=== PATIENT | female | born 1950 | race American Indian/Alaskan Native ===

== ENCOUNTER 2021-04-20 08:16 | Day surgery (SDC) | payer MEDICARE ==
[2021-04-20 09:22] LABS: Basophils % (Auto) 0.7 % (0.0-1.8); Eosinophils # (Auto) 0.1 K/mm3 (0.0-0.4); Lymphocytes # (Auto) 1.6 K/mm3 (1.2-5.4); Lymphocytes % (Auto) 26.5 % (13.4-35.0); Mean Corpuscular HGB Conc 30 % (30-34); Mean Corpuscular Volume 75 fl (79-97); Monocytes # (Auto) 0.6 K/mm3 (0.0-0.8); Monocytes % (Auto) 10.2 % (0.0-7.3); Platelet Count 293 K/mm3 (140-440); Red Blood Count 4.67 M/mm3 (3.65-5.03); Red Cell Distribution Width 18.8 % (13.2-15.2)
[2021-04-20 09:33] LABS: Blood Urea Nitrogen 14 mg/dL (7-17); Calcium 9.7 mg/dL (8.4-10.2); Hemolysis Index 87
[2021-04-20 09:38] LABS: BUN/Creatinine Ratio 20
[2021-04-20] MEDS ORDERED: ASPIRIN 81 MG TAB CHEW PO SCH (10:00)
[2021-04-20] MEDS: SODIUM CHLORIDE 0.9% 500 ML 500 ML IV SCH ×2 (10:05→11:00)
[2021-04-20 10:07] LABS: Hematocrit 34.9 % (30.3-42.9); Hemoglobin 10.6 gm/dl (10.1-14.3)
[2021-04-20 10:28] LABS: INR 1.06 (0.87-1.13)
[2021-04-20] MEDS ORDERED: HEPARIN/NS 5000 UNIT/500ML 1,000 ML IR ONE (10:42)
[2021-04-20] MEDS ORDERED: fentaNYL 100 MCG/2 ML INJ ONE (10:43)
[2021-04-20] MEDS ORDERED: LIDOCAINE (2%) 20 MG/1 ML VIAL 20 ML MDV INFILTRATI ONE (10:43)
[2021-04-20] MEDS ORDERED: NITROGLYCERIN SYRINGE 3 ML ONE (10:43)
[2021-04-20] MEDS ORDERED: MIDAZOLAM 2 MG/2 ML INJ ONE (10:43)
[2021-04-20] MEDS ORDERED: HEPARIN 10,000 UNITS/10 ML VIAL ONE (10:43)
[2021-04-20] MEDS ORDERED: VERAPAMIL 5 MG/2 ML INJ ONE (10:43)
[2021-04-20] MEDS ORDERED: traMADol 50 MG TAB PO PRN (11:47)
--- NOTE | 2021-04-20 11:49 | Discharge Summary ---
Short Stay Discharge Plan Activity: advance as tolerated Weight Bearing Status: Full Weight Bearing Diet: low fat, low cholesterol, low salt, diabetic Wound: keep clean and dry Special Instructions: no heavy lifting (3 days) Follow up with: PASTORA LEE MD [Primary Care Provider] - 7 Days ZINA GIL MD [Staff Physician] - 7 Days
--- NOTE | 2021-04-20 11:58 | Cardiac Catherization Report ---
DATE OF SERVICE: 04/20/2021 REASON FOR PROCEDURE: Chest pain. PROCEDURES: PERFORMED: 1. Left heart catheterization. 2. Selective left and right coronary angiography. 3. Left ventricular angiography. 4. Sedation time start 1101, end 1120. DESCRIPTION OF PROCEDURE: The patient was prepped and draped in a sterile fashion after informed consent. Right radial cath site was prepped and draped after negative Lew's test. The right radial artery was entered using Seldinger technique followed by placement of a 6-Tristanian hydrophilic sheath. Routine radial cocktail was administered via the sheath. Selective left and right coronary angiography was performed using #3.5 left Jcarlos and a #4 right Jcarlos. The pigtail catheter was used for left ventricular angiography. The catheters were then removed, sheath removed and hemostasis achieved using a TR band. The patient was returned to the postprocedure unit in stable condition. There were no complications. HEMODYNAMICS: Left ventricular end-diastolic pressure was 17, following coronary angiography. Ascending aortic pressure was 132/64. There was no significant pressure gradient on pullback across the aortic valve. CORONARY ANGIOGRAPHY: The left main was short, essentially separate LAD and circumflex ostia. The left anterior descending artery was mildly ectatic, but widely patent. No significant disease of the LAD or the diagonal branches. The circumflex artery was a large system, this vessel and its obtuse marginal branches were also free of significant disease. The right coronary artery was relatively of small caliber, but dominant. This vessel contained mild luminal irregularities. There was normal left ventricular systolic function with ejection fraction of 55-60%. CONCLUSION: 1. Essentially angiographically normal coronary arteries. 2. Well preserved left ventricular systolic function, ejection fraction of 55-60%. RECOMMENDATIONS: Risk factor modification and medical therapy. TID: [id number] RECEIPT: [id number] DION/ESTEBAN
[2021-04-20] MEDS ORDERED: SODIUM CHLORIDE 0.9% 1000 ML 1,000 ML IV SCH (12:15)
--- NOTE | 2021-04-20 13:24 | Electrocardiograph Report ---
[facility] Test Date: 2021-04-20 Test Time: 09:25:19 Pat Name: STEPHAN CUNNINGHAM Department: Room: Gender: F [employer] Painter: IRENE : 1950 Requested By: CORAZON BARNES Order Number: [id number] Reading MD: Corazon Barnes Measurements Intervals [facility] Rate: 66 P: 251 CA: 206 QRS: -25 QRSD: 105 T: 169 QT: 436 QTc: 461 Interpretive Statements Sinus or ectopic atrial rhythm Multiform ventricular premature complexes LVH with secondary repolarization abnormality No previous ECG available for comparison Electronically Signed On 04-20-2021 13:24:23 EST by Corazon Barnes
[2021-04-20 16:25] VITALS: BP 128/89
== END 2021-04-20 08:17 | disposition home or self-care (01) ==
LOC: CATHLABREC 08:16
PROVIDERS: ATTEND Internal Medicine Cardiovascular Disease
DX: R07.89 Other chest pain (principal); R94.30 Abnormal result of cardiovascular function study, unspecified; E78.00 Pure hypercholesterolemia, unspecified; I10 Essential (primary) hypertension; J45.909 Unspecified asthma, uncomplicated; G47.30 Sleep apnea, unspecified; K21.9 Gastro-esophageal reflux disease without esophagitis; Z85.038 Personal history of other malignant neoplasm of large intestine; Z79.899 Other long term (current) drug therapy; Z79.82 Long term (current) use of aspirin; Z98.890 Other specified postprocedural states; Z98.42 Cataract extraction status, left eye; Z82.5 Family history of asthma and other chronic lower respiratory diseases
CPT/HCPCS: 36415; 80048; 85025; 85610; 85730; 93005; 93010; 93458; 99156; C1894; J1644; J1815; J2250; J3010; J3490; J7040; Q9967